=== PATIENT | female | born 1950 ===

== ENCOUNTER → 2018-07-04 10:53 | Outpatient (CLI) | payer OTHER | END | disposition home or self-care (01) | LOC: LAB 07-03 20:22 → TOM 10:53 | DX: D63.8 Anemia in other chronic diseases classified elsewhere (principal); R19.09 Other intra-abdominal and pelvic swelling, mass and lump ==

== ENCOUNTER 2018-07-18 09:03 | Outpatient (CLI) | payer OTHER | END 2018-07-18 09:23 | disposition home or self-care (01) | LOC: NUCLEAR 09:03 | DX: R22.1 Localized swelling, mass and lump, neck (principal); R59.0 Localized enlarged lymph nodes | CPT/HCPCS: 78816; A9552 ==

== ENCOUNTER → 2018-08-27 10:21 | Outpatient (CLI) | payer OTHER ==
[~2018-08-27 10:21] MED LIST: PERCOCET 5-3251 EACH PO; ULTRAM50 MG
== END | disposition home or self-care (01) ==
LOC: LAB 10:21
DX: C67.0 Malignant neoplasm of trigone of bladder (principal); C67.4 Malignant neoplasm of posterior wall of bladder; I10 Essential (primary) hypertension

== ENCOUNTER 2018-08-30 06:40 | Day surgery (SDC) | payer OTHER ==
[~2018-08-30 06:40] MED LIST changes: -PERCOCET 5-3251 EACH PO
[2018-08-30] MEDS ORDERED: PERCOCET 5-3251 EACH PO (10:02)
== END 2018-08-30 11:42 | disposition home or self-care (01) ==
LOC: CIR.AMB 06:40
DX: C67.4 Malignant neoplasm of posterior wall of bladder (principal)
CPT/HCPCS: 36561; C1751